=== PATIENT | female | born 1965 | race Caucasian/White ===

== ENCOUNTER 2023-04-13 14:35 | Outpatient (CLI) | payer OTHER | END 2023-04-13 14:49 | disposition home or self-care (01) | LOC: MAMO-SONO 14:35 | PROVIDERS: ATTEND Obstetrics & Gynecology Maternal & Fetal Medicine | DX: N63 Unspecified lump in breast (principal); N64.4 Mastodynia; N60.11 Diffuse cystic mastopathy of right breast; Z12.31 Encounter for screening mammogram for malignant neoplasm of breast ==

== ENCOUNTER 2024-02-08 10:13 | Outpatient (CLI) | payer OTHER | END 2024-02-08 10:23 | disposition home or self-care (01) | LOC: RAD 10:13 | PROVIDERS: ATTEND Orthopaedic Surgery | DX: M25.552 Pain in left hip (principal); M54.50 Low back pain, unspecified ==

== ENCOUNTER 2024-12-10 08:06 | Outpatient (CLI) | payer OTHER | END 2024-12-10 08:13 | disposition home or self-care (01) | LOC: MAMO-SONO 08:06 | PROVIDERS: ATTEND Obstetrics & Gynecology Maternal & Fetal Medicine | DX: N64.4 Mastodynia (principal); Z12.31 Encounter for screening mammogram for malignant neoplasm of breast; N60.11 Diffuse cystic mastopathy of right breast; N60.12 Diffuse cystic mastopathy of left breast ==